=== PATIENT | female | born 1955 | race Caucasian/White ===

== ENCOUNTER → 2017-12-10 | Day surgery (SDC) | payer BC ==
[2017-12-10 13:40] VITALS: RESP 16; TEMP 98.1; BMI 30.1
[2017-12-10 15:06] VITALS: BP 143/83; PULSE 67
--- NOTE | 2017-12-11 08:57 | MM ---
Stereotactic Mammotome core biopsy right breast. HISTORY: Right breast nodule The nodule in question within the right breast were targeted by the undersigned. Procedure was performed by the undersigned. Informed consent was obtained and all of the patients questions were answered. The standard sterile technique was utilized and appropriate local anesthesia was obtained with 1% lidocaine as well as 1% lidocaine with epinephrine. Mammotome probe was advanced and multiple core samples were obtained and sent to pathology for interpretation. Microclip marker was deployed at the site of biopsy. Post procedural mammogram demonstrates appropriate deployment of radiopaque clip marker. The patient tolerated the procedure well and left the department in stable condition. Pathology results are pending. IMPRESSION: Successful stereotactic core biopsy right breast nodule with pathology results pending. Pathology Results: Benign BREAST, RIGHT, CORE BIOPSY: FIBROADENOMA AND BACKGROUND FIBROCYSTIC CHANGES. Recommendation Follow up mammogram of the right breast in 6 months. ANGEL
== END ==
LOC: RADMAMWWP 13:17
PROVIDERS: ATTEND Family Medicine
DX: D24.1 Benign neoplasm of right breast (principal); N63.10 Unspecified lump in the right breast, unspecified quadrant; N60.11 Diffuse cystic mastopathy of right breast; Z91.09 Other allergy status, other than to drugs and biological substances; Z88.0 Allergy status to penicillin; Z88.5 Allergy status to narcotic agent; Z91.018 Allergy to other foods
CPT/HCPCS: 88305; 19081; A4648; J2001

== ENCOUNTER → 2022-10-30 | Outpatient (CLI) | payer MEDICARE ==
--- NOTE | 2022-10-31 14:00 | MR ---
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 IV Contrast: 8 cc Gadavist FINDINGS: Reproductive: Vagina: Unremarkable. Uterus: Surgically absent Ovaries: Ovaries are not definitively visualized may be surgically absent. Urethra: There is a mass just left and posterior of the external urethral meatus and anterior left of the vagina introitus measuring at least measuring 21 x 17 x 19 mm with low central T2 and T1 signal predominantly peripheral enhancement. Bladder: Unremarkable. Bowel: Unremarkable as visualized. Peritoneum: No evidence of adenopathy. Vasculature: Unremarkable. Abdominal wall/soft tissues: Unremarkable. Musculoskeletal: Bone marrow signal is within normal signal intensity. IMPRESSION: Peripheral enhancing lesion posterior and left to the external urethral meatus and anterior left to t he vagina which is a good location for Celsa duct cyst however given its central noncystic appearan ce and peripheral enhancement, further evaluation with urologic consultation is recommended possibly tissue sampling.
== END | disposition home or self-care (01) ==
LOC: RADMRIMAIN 17:53
PROVIDERS: ATTEND Urology
DX: D41.3 Neoplasm of uncertain behavior of urethra (principal); Q52.4 Other congenital malformations of vagina
CPT/HCPCS: 72197; A9585

== ENCOUNTER → 2023-07-14 | Outpatient (CLI) | payer MEDICARE ==
--- NOTE | 2023-07-15 19:10 | MR ---
EXAMINATION TYPE: MR pelvis wo/w con DATE OF EXAM: 07/14/2023 COMPARISON: 10/30/2022 CLINICAL INDICATION:Female, 67 years old with history of C54.1; PHH, Hx Endometrium cancer, Mass trev caryn 05-13-2023 TECHNIQUE: Triplane multisequence imaging was performed of the pelvis. IV Contrast: 9 cc Gadavist FINDINGS: Reproductive: Vagina: Suspected postsurgical change to the area along the anterior vagina wall seen on prior on 10/03/2022. No peripheral enhancing organizing fluid collection on today's exam. No suspicious lesions. Uterus: Uterus appears surgically absent. The ovaries are not visualized may be surgically absent. No abnormal soft tissue in the surgical bed. Bladder: Unremarkable. Bowel: Unremarkable as visualized. Peritoneum: A small amount of free fluid in the pelvis. Lymph nodes: No evidence of adenopathy. No greater than 1.0 cm lymph nodes identified. Vasculature: Unremarkable. Musculoskeletal: Bone marrow signal is within normal signal intensity. No suspicious osseous lesions. Abdominal wall/soft tissues: Unremarkable. IMPRESSION: 1. Postsurgical changes to the lesion in the anterior vagina/periurethral lesion. No organizing flui d collections on today's exam. 2. The uterus is surgically absent. The ovaries appear surgically absent. No enlarged lymph nodes gr eater than 1.0 cm in short axis.
== END | disposition home or self-care (01) ==
LOC: RADMRIMAIN 08:20
PROVIDERS: ATTEND Radiology Radiation Oncology
DX: C54.1 Malignant neoplasm of endometrium (principal)
CPT/HCPCS: 72197; A9585

== ENCOUNTER → 2024-07-05 | Outpatient (CLI) | payer MEDICARE ==
--- NOTE | 2024-07-23 15:58 | CONS ---
CONSULTATION I do not have the name of primary care physician. REASON FOR CONSULTATION: 68-year-old lady had been evaluated in [facility] for possible obstructive sleep apnea-hypopnea syndrome. HISTORY OF PRESENT ILLNESS: Sleep-wake evaluation. The patient has difficulties with falling asleep. Presently, she is taking RestEZ which helps her to fall asleep. Her sleep schedule is from 11 p.m. to 7 a.m. The patient snores and wakes up from sleep 4 times with nocturia, especially when patient is on the back position, positive history of gasping for air. During the day, the patient may feel sleepiness, take 1 nap around 3 p.m., [place] Sleepiness Scale is 3. PAST MEDICAL HISTORY: Hypertension, hyperlipidemia, uterus cancer, vaginal cancer. PAST SURGICAL HISTORY: Total hysterectomy, radiation and surgical treatment for vaginal cancer. SOCIAL HISTORY: Negative for smoking. Alcohol consumption rare. MEDICATION: Metoprolol 25 mg twice a day. FAMILY HISTORY: Heart problems, emphysema. PHYSICAL EXAMINATION: GENERAL: Patient in no distress. VITAL SIGNS: BP 174/90 , HR 64, RR 16, height 5 foot one and three quarter inches, weight 192, BMI 55.4, temperature 97.6. HEENT: PERRLA, EOMI, evaluation of oropharynx showed extremely low position of soft palate, Mallampati 3-4. NECK: Supple, no JVD. Thyroid is not palpable. LUNGS: Clear to percussion and to auscultation. Good air exchange. No wheezing or rhonchi. HEART: S1, S2 regular. No murmurs, gallops, or rubs. ABDOMEN: Soft and nontender. Bowel sounds are present. No organomegaly appreciated. Obese. EXTREMITIES: No clubbing or cyanosis. COUNTY HEALTH OFFICER: Awake, alert, and oriented X3. Cranial nerves 2 to 7 intact. There is no fasciculation or atrophy. noted. No focal deficits observed. IMPRESSION: 1. Snoring, multiple awakenings from sleep, extremely low position of soft palate, Mallampati 3-4. Obstructive sleep apnea-hypopnea syndrome. 2. Obesity; body mass index 55.4. 3. Hypertension. 4. Restriction of nasal breathing. 5. Status post hysterectomy for cancer. 6. Status post surgical treatment for vaginal cancer. PLAN: 1. Polysomnography for evaluation of patient breathing during the sleep. 2. Following plan after reviewing sleep study. 3. Losing weight program. 4. Sleep hygiene with regular time in bed for at least 7.5 to 8 hours. 5. No driving if feeling sleepiness. Thank you very much for referring this patient for consultation. Sincerely, Quang Lopez MD, PhD, FAASM Diplomat of [employer] Sleep Medicine Board of [place] [employer] Branch Examin[facility] [place] MMODL / IJN: [id number] / ANGEL
== END ==
LOC: 3 N SLEEP 10:20
PROVIDERS: ATTEND Internal Medicine
CPT/HCPCS: 99211

== ENCOUNTER 2024-07-16 19:29 | Outpatient (CLI) | payer MEDICARE ==
--- NOTE | 2024-08-27 08:55 | SLS ---
SLEEP STUDY PROCEDURE: Polysomnogram. DESCRIPTION OF PROCEDURE: The standard montage for clinical polysomnography included the electroencephalogram, the electroculogram, the mentalis surface electromyography and Lead II cardiography. The respiratory battery consisted of measurements of nasal/buccal air flow, pressure transducer measurements from nose, thoracic, and/or abdominal effort and intercostal surface electromyography. Video monitoring has been done to check for any parasomnia events. Nocturnal oxyhemoglobin saturations were obtained by finger oximetry. Raw data of sleep recording has been reviewed and is adequate. RESULTS: During diagnostic polysomnogram, recording time was 456 minutes, total sleep time was 306 minutes. Sleep efficiency was significantly decreased to 67.2%. Latency to sleep onset was in normal range 18 minutes. Sleep architecture showed stage N1 was normal at 8.3%, delta sleep was normal at 13.7%, REM sleep was decreased to 15%. Respiratory channel showed 7 obstructive apneas, 1 mixed apnea, 78 hypopneas with total apnea-hypopnea index 16.8, and oxygen desaturation to 74%. Oxygen level was below 90% for 19 minutes during the sleep study and below 85% for 3 minutes 45 seconds. EMG showed 13.7 periodic limb movements per hour with 1 microarousal per hour. IMPRESSION: 1. Moderate obstructive sleep apnea-hypopnea syndrome with severe oxygen desaturation. 2. Mild periodic limb movements have been documented with a few microarousals. PLAN: 1. CPAP titration for correction of respiratory abnormalities during sleep. 2. Watching and losing weight. 3. Sleep hygiene with regular time in bed for at least 8 hours. 4. Precautions related to driving. No driving if feeling sleepiness. Thank you very much for allowing me to participate in management of your patient. Sincerely, Quang Lopez MD, PhD, FAASM Diplomat of [place] [employer] Sleep Medicine Board of [place] [employer] [facility] [place] MMODL / IJN: [id number] / [facility]ITAL[facility]
== END 2024-07-17 05:47 | disposition home or self-care (01) ==
LOC: 3 N SLEEP 19:29
PROVIDERS: ATTEND Internal Medicine
CPT/HCPCS: 95810

== ENCOUNTER 2024-09-09 19:45 | Outpatient (CLI) | payer MEDICARE ==
--- NOTE | 2024-09-15 14:29 | P.PCN ---
Description of Procedure: CLINICAL: Titration with positive air pressure has been done for correction of respiratory abnormalities during sleep. DESCRIPTION OF PROCEDURE: The standard montage for clinical polysomnography included the electroencephalogram, the electrocardiogram, the mentalis surface electromyography and Lead II cardiography. The respiratory battery consisted of measurements of nasal /buccal air flow, pressure transducer measurements from the nose, thoracic and /or abdominal effort and intercostal surface electromyography. Video monitoring has been done to check for any parasomnia events. Nocturnal oxyhemoglobin saturations were obtained by finger oximetry. Step-diaz titration with positive airway pressure was utilized to control respiratory events. Raw data of sleep recording has been reviewed and is adequate. RESULTS: Sleep efficiency was decreased to 74.1%. Latency to sleep onset was in normal range 17.0 minutes.]. Sleep architecture showed stage N1 was slightly increased to 10.0%, Delta sleep was short 2.9%, REM sleep was decreased to 13.1%. Heart rate was minimum 59 BPM, maximum 75 BPM, average 64 BPM. EMG showed 11.4 periodic limb movements per hour with 1.8 micriarousals per hour. PAP titration have been done with CPAP up to the pressure 8 cm H2O. The best results were at the pressure 8 cm H2O. Apnea hypopnea index reduced to 8.1. IMPRESSION: 1. Obstructive sleep apnea hypopnea syndrome mostly on controle with PAP treatment. 2. Very mild periodic limb movements have been documented. Please see other impressions from consultation. PLAN: 1. The patient will have treatment with positive air pressure equipment with the level of pressure aorta PAP 5-10 cm H2O and should use it every night for the whole night. 2. Watching and losing weight. 3. Sleep hygiene with regular time in bed for at least 8 hours. 4. No driving if feeling any sleepiness. 5. I will see the patient for follow up visit to explain the results of the test, recommendations, check compliance with treatment and make any necessary adjustment related to mask fitting, pressure and humidification. 6. Please check iron profile including ferritin level. Low level of iron may increase risk for periodic limb movements Thank you very much for allowing me to participate in the management of your patient. Sincerely, Quang Lopez MD, PhD, FAASM Diplomat of [employer] [employer] Sleep Medicine Board of [place] [employer] [facility] [place] cc: Rafita Ordonez MD
== END 2024-09-10 05:40 | disposition home or self-care (01) ==
LOC: 3 N SLEEP 19:45
PROVIDERS: ATTEND Internal Medicine
CPT/HCPCS: 95811

== ENCOUNTER → 2024-09-23 | Outpatient (CLI) | payer MEDICARE ==
[2024-09-23 14:36] LABS: African American GFR (CKD) 60 (>60 ml/min/1.73 sqM); Blood Urea Nitrogen 32 mg/dL (7-17); Non-African American GFR(CKD) 52 (>60 ml/min/1.73 sqM)
--- NOTE | 2024-09-23 15:18 | CT ---
EXAMINATION TYPE: CT abdomen pelvis w con CT DLP: 1487 mGycm, Automated exposure control for dose reduction was used. 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 Coronal and sagittal reformats were performed. FINDINGS: LOWER CHEST: Bilateral lower lobe pulmonary nodules with largest medially within the right lower lobe measuring up to 9.6 mm (series 6, image 11). Largest within the left lower lobe measures up to 6.6 m m (series 6, image 2). ABDOMEN LIVER: Left hepatic lobe 1.4 cm cyst. GALLBLADDER AND BILE DUCTS: Unremarkable. PANCREAS: Unremarkable. SPLEEN: Unremarkable. ADRENAL GLANDS: Unremarkable. KIDNEYS AND URETERS: No evidence of hydronephrosis or renal calculus. Subcentimeter hypodense foci wi thin the left kidney likely representing cysts. The kidneys enhance symmetrically. Contrast is demons trated within both collecting systems on the delayed phase. PELVIS BLADDER: Incompletely distended but grossly unremarkable. REPRODUCTIVE: The uterus is surgically absent. The ovaries appear surgically absent. No suspicious so ft tissue within the pelvis to suggest recurrence. ABDOMEN & PELVIS STOMACH AND BOWEL: Stomach and duodenum are unremarkable. No focal bowel wall thickening or surroundi ng inflammatory changes. Enteric contrast is reaches the ileocecal junction. No evidence of bowel obs truction. PERITONEUM: No evidence of pneumoperitoneum or free fluid. VASCULATURE: No evidence of aortic aneurysm. MUSCULOSKELETAL: No acute osseous abnormalities. No aggressive osseous lesion. LYMPH NODES: No evidence for lymphadenopathy. SOFT TISSUE/ABDOMINAL WALL: Unremarkable IMPRESSION: No evidence for recurrence or metastasis within the abdomen and pelvis however there are several pulm onary nodules identified within the bilateral lower lobes with the largest measuring up to 9.6 mm. Th is raises concern for possible pulmonary metastasis. No prior imaging of the chest is available for c omparison. Further evaluation with PET/CT is recommended. [facility], , 09/23/2024 3:16 PM
== END | disposition home or self-care (01) ==
LOC: RADCTMAIN 13:03
PROVIDERS: ATTEND Obstetrics & Gynecology
CPT/HCPCS: 36415; 74177; 82565; 84520

== ENCOUNTER → 2024-10-22 | Outpatient (CLI) | payer MEDICARE ==
--- NOTE | 2024-10-26 14:48 | PE ---
EXAMINATION TYPE: PET CT fusion skull to thigh DATE OF EXAM: 10/22/2024 CLINICAL INDICATION:Female, 68 years old with history of C54.1 MALIGNANT NEOPLASM OF ENDOMETRIUM; his tory of radiation therapy to the pelvis. TECHNIQUE: Following the intravenous administration of 10.57 mCi of F-18 FDG, whole body images are performed from the skull base to the midthigh. Images are reviewed on the computer in the coronal, axial, and sagittal planes. Reconstructed rotating images are created on independent workstation and reviewed on the computer. A non-contrast CT is performed in conjunction with the PET scan. Glucose level 93 mg/dL CT DLP: 824.13 mGycm, Automated exposure control for dose reduction was used. COMPARISON: CT 09/23/2024, PET/CT None, MRI: 07/14/2023, 10/30/2022 FINDINGS: Mediastinal SUV mean is 2.5. Hepatic parenchyma SUV mean is 3.7. SKULL BASE AND NECK: Subcentimeter right posterior neck lymph node with mild FDG activity just above background with a max imum SUV of 3.5. Favored to be reactive. Bilateral tonsilloliths with some mild FDG activity suggesting chronic infection/inflammation. CHEST, MEDIASTINUM, AND HILAR REGION: No suspicious radiotracer activity. Several scattered pulmonary nodules with largest within the medial aspect of the right lower lobe coleen suring up to 8 mm. Demonstrates a maximum SUV of 1.9 which is below background levels. Left lower lobe 7 mm pulmonary nodule with a maximum SUV of 3.4 which is just above background levels . Right upper lobe 5 mm pulmonary nodule with a maximum SUV of 2.7 which is at background levels. ABDOMEN AND PELVIS: No suspicious radiotracer activity. Uterus and both ovaries are surgically absent. No suspicious FDG activity to suggest local recurrence . MUSCULOSKELETAL STRUCTURES: Symmetrical heterogenous appearance of the sacrum with regions of FDG activity within the sacral ala bilaterally with a maximum SUV of 7.5. OTHER CT: Mild cardiomegaly. Left hepatic lobe 1.3 cm cyst. Bilateral hearing aids. IMPRESSION: 1. Postsurgical changes from hysterectomy and bilateral oophorectomy. No FDG activity to suggest loc al recurrence. 2. Several scattered pulmonary nodules with largest measuring up to 8 mm. Majority of these nodules are below the sensitivity of PET/CT. A few demonstrate radiotracer activity near background levels wh ich is indeterminate. Follow-up CT chest in 6 months is recommended to assess for interval change. 3. Additional nonenlarged right posterior neck lymph node with FDG activity at background levels. Fa vored to be reactive. Consider follow-up CT neck in 6 months. 4. Heterogenous appearance to the sacrum with increased radiotracer activity favored to represent ra diation-induced bone marrow changes. [facility], , 10/26/2024 2:46 PM
== END | disposition home or self-care (01) ==
LOC: RADPETMAIN 14:28
PROVIDERS: ATTEND Obstetrics & Gynecology
DX: C54.1 Malignant neoplasm of endometrium (principal); C79.19 Secondary malignant neoplasm of other urinary organs; Z90.710 Acquired absence of both cervix and uterus; Z90.722 Acquired absence of ovaries, bilateral; Z92.3 Personal history of irradiation; Z85.42 Personal history of malignant neoplasm of other parts of uterus; R91.8 Other nonspecific abnormal finding of lung field
CPT/HCPCS: 78815; A9552

== ENCOUNTER → 2024-12-29 | Outpatient (CLI) | payer MEDICARE ==
[2024-12-29 15:58] VITALS: BP 143/85; PULSE 74; RESP 18; TEMP 97.6
--- NOTE | 2024-12-29 16:57 | P.PROGSL ---
Subjective DATE: 12/29/2024 FOLLOW UP VISIT. Patient with obstructive sleep apnea hypopnea syndrome return to sleep center for follow-up visit. Recently patient had sleep study which documented obstructive sleep apnea hypopnea syndrome. Patient was initiated on PAP therapy and today is first visit after treatment was started. Patient was able to use PAP equipment every night for the whole night. Patient has discomfort with full facemask. [place] sleepiness scale is 4, which is normal. I checked information from PAP unit. PAP unit pressure 5-10, average 8.6 cm H2O. Usage is 70% for more then 4 hours. Leak is 4.1 l/m, which is in good range. Apnea Hypopnea Index is 4.0, which is normal. MEDICATIONS:1. Metoprolol 25 mg twice a day During physical exam: GENERAL: A pleasant patient without any distress. VITAL SIGNS: Please see below, weight 192.8 pounds. HEENT: PERRLA, EOMI.low position of soft palate, Mallapati[] . NECK: Supple. No JVD. LUNGS: Clear to percussion and to auscultation. Good air exchange. No wheezing or rhonchi. HEART: S1, S2 regular. ABDOMEN: Soft and nontender.[] EXTREMITIES: No clubbing or cyanosis. CERTIFIED MEDICAL ASST: Awake, alert, and oriented x3. No focal deficit. Impressions: 1. Obstructive sleep apnea-hypopnea syndrome. Patient demonstrated good compliance with treatment, benefiting from treatment. 2. Obesity, BMI 55. 3. Hypertension. 4. Mild restriction of nasal breathing. 5. Status post hysterectomy for cancer. 6. Status post surgical treatment for vaginal cancer. Plan: 1. Continue using PAP equipment every night for the whole night. Patient will try to use nasal pillows with nasal strips and chinstrap if necessary. 2. To change air filter at least 1-2 times per month. 3. PAP unit should stay lower then position of the head. 4. Advised patient to remove all remaining water from humidifier canister daily and make it dry after each usage. Refill canister with fresh distilled water before each usage. 5. Sleep hygiene with regular time in bed for at least 8 hours. 6. Precautions related to driving. No driving if feel any sleepiness. 7. I will maintain prescription for PAP supplies including mask, tube, filters. 8. Follow up visit in 4 months or earlier if patient has any problems. 9. Watching and losing weight. Thank you very much for allowing me to participate in the management of your patient. Quang Lopez MD, PhD, FAASM. Diplomat of [place] [employer], Sleep Medicine Board by [place] [employer] Custody Assistant [facility] [place] cc: Rafita Ordonez MD Objective - Vital Signs Vital Signs: Vital Signs Temp 97.6 F 12/29/24 15:54 Pulse 74 12/29/24 15:54 Resp 18 12/29/24 15:54 BP 143/85 12/29/24 15:54 Pulse Ox 97 12/29/24 15:54 FiO2 Intake & Output 12/28/24 12/29/24 12/29/24 18:59 06:59 18:59 Weight 87.317 kg Home Medications: Home Medications Medication Instructions Recorded Confirmed Type Calcium Carbonate [Calcium] 600 mg PO DAILY 11/20/17 12/10/17 History
== END ==
LOC: 3 N SLEEP 15:34
PROVIDERS: ATTEND Internal Medicine
DX: G47.33 Obstructive sleep apnea (adult) (pediatric) (principal); E66.01 Morbid (severe) obesity due to excess calories; I10 Essential (primary) hypertension; R06.83 Snoring; Z68.55 Body mass index [BMI] pediatric, 120% of the 95th percentile for age to less than 140% of the 95th percentile for age; Z90.711 Acquired absence of uterus with remaining cervical stump; Z48.3 Aftercare following surgery for neoplasm; Z88.8 Allergy status to other drugs, medicaments and biological substances; Z88.0 Allergy status to penicillin
CPT/HCPCS: 99212